=== PATIENT | male | born 1980 | race Two or more races ===

== ENCOUNTER 2024-05-03 08:44 | Emergency (ER) | payer OTHER ==
[~2024-05-03] VITALS: Ht 177.8 cm; Wt 97.5 kg
[2024-05-03] MEDS ORDERED: MORPHINE SULFATE 4 MG/1 ML DISP.SYRIN ONE (09:13)
[2024-05-03] MEDS ORDERED: MORPHINE SULFATE 2 MG/1 ML DISP.SYRIN ONE (09:13)
[2024-05-03] MEDS ORDERED: ONDANSETRON 4 MG/2 ML VIAL ONE (09:13)
[2024-05-03] MEDS: ONDANSETRON 4 MG/2 ML VIAL IV ONE (09:13)
[2024-05-03] MEDS: IV NORMAL SALINE 1000 ML BAG IV ONE (09:15)
[2024-05-03] MEDS: MORPHINE SULFATE 2 MG/1 ML DISP.SYRIN IV ONE (09:17)
[2024-05-03 09:18] LABS: BASOPHILS % (AUTO) 0.4 % (0.0-2.0); EOSINOPHILS % (AUTO) 0.1 % (0.0-7.0); HEMATOCRIT 40.8 % (36.7-47.1); HEMOGLOBIN 14.1 g/dL (12.5-16.3); LYMPHOCYTES # (AUTO) 1.1 K/uL (0.8-4.8); LYMPHOCYTES % (AUTO) 9.4 % (20.5-51.5); MEAN CORPUSCULAR HEMOGLOBIN 31.8 uug (23.8-33.4); MEAN CORPUSCULAR HGB CONC 35 g/dL (32.5-36.3); MEAN CORPUSCULAR VOLUME 91.7 fL (73.0-96.2); MONOCYTES # (AUTO) 0.7 K/uL (0.1-1.30); MONOCYTES % (AUTO) 6.2 % (0.0-11.0); NEUTROPHILS # (AUTO) 9.6 K/uL (1.8-8.9); NEUTROPHILS % (AUTO) 83.9 % (38.5-71.5); PLATELET COUNT (AUTO) 192 K/uL (152-348); RED BLOOD CELL COUNT(AUTO) 4.45 MIL/uL (4.06-5.63); RED CELL DISTRIBUTION WIDTH 12.8 % (12.1-16.2); WHITE BLOOD COUNT (AUTO) 11.5 K/uL (3.6-10.2)
[2024-05-03 09:22] LABS: DIFFERENTIAL COMMENT 1
[2024-05-03 09:28] LABS: CALCIUM 9.4 mg/dL (8.5-10.1); POTASSIUM 4.3 mmol/L (3.5-5.1)
[2024-05-03 09:33] LABS: ALBUMIN 3.5 g/dL (3.4-5.0); BILIRUBIN,DIRECT 0.2 mg/dL (0.0-0.2); BILIRUBIN,TOTAL 0.8 mg/dL (0.2-1.0); TOTAL PROTEIN, SERUM 8.1 g/dL (6.4-8.2)
[2024-05-03] MEDS ORDERED: IOHEXOL 300MG/ML 100 ML INFUS..BTL ONE (10:15)
[2024-05-03] MEDS ORDERED: IV NORMAL SALINE 250 ML IV ONE (10:16)
[2024-05-03] MEDS ORDERED: SWABABLE VALVE TRANSFER SET EA MC ONE (10:16)
[2024-05-03] MEDS: PIPERACILLIN SODIUM/TAZOBACTAM 4.5 G in IV DEXTROSE 5% 50 ML IV ONE (11:01)
[2024-05-03] MEDS ORDERED: PIPERACILLIN/TAZOBACTAM/D5W 50 ML IV ONE (11:02)
[2024-05-03] MEDS ORDERED: CIPROFLOXACIN HCL 250 MG TABLET ONE (11:53)
[2024-05-03] MEDS ORDERED: METRONIDAZOLE 500 MG TABLET ONE (11:53)
[2024-05-03] MEDS: CIPROFLOXACIN HCL 250 MG TABLET PO ONE (11:54)
[2024-05-03] MEDS: METRONIDAZOLE 500 MG TABLET PO ONE (11:54)
[2024-05-03] MEDS ORDERED: METR-147 PO (11:55)
[2024-05-03] MEDS ORDERED: CIPR500T5 PO (11:55)
[2024-05-03] MEDS ORDERED: OXYC-128 PO (11:55)
[2024-05-03 12:10] VITALS: O2SAT 97
== END 2024-05-03 12:12 | disposition home or self-care (01) ==
LOC: ER 08:44
DX: K57.32 Diverticulitis of large intestine without perforation or abscess without bleeding (principal); Z79.899 Other long term (current) drug therapy
CPT/HCPCS: 99285; 74177; 96365; 96375; 96361; 80076; 80048; 83690; 85025; 36415; J2405; Q9967; J2543; J2270 ×2; J7040; A4606; A4663